=== PATIENT | female | born 1955 | race Caucasian/White ===

== ENCOUNTER 2017-10-27 11:43 | Inpatient (IN) | payer BC ==
[~2017-10-27] VITALS: Ht 162.6 cm; Wt 71.5 kg
[2017-10-27 12:25] LABS: COLLECTION METHOD CLEAN CATCH
[2017-10-27 12:31] LABS: PH 6 (5-8); SQUAMOUS EPITHELIAL None Seen /hpf; URINE APPEARANCE Clear; URINE BACTERIA Rare /hpf; URINE BILIRUBIN Negative (NEGATIVE); URINE BLOOD Negative (NEGATIVE); URINE COLOR Yellow; URINE GLUCOSE Negative (NEGATIVE); URINE KETONE 2+ (NEGATIVE); URINE LEUKOCYTE ESTERASE Negative (NEGATIVE); URINE NITRATE Negative (NEGATIVE); URINE PROTEIN(semi-quant) Negative (NEGATIVE); URINE RBC 0-2 /hpf; URINE UROBILINOGEN Negative (NEGATIVE)
[2017-10-27 12:38] LABS: MEAN CELL VOLUME 100 fl (80.0-100.0); MEAN CORPUSCULAR HGB CONC 32 g/dl (33.0-37.0); PLATELET COUNT 623 K/mm3 (130-400); RED BLOOD COUNT 3.11 M/mm3 (4.10-5.30); REDCELL DISTRIBUTION WIDTH-CV 20.6 % (11.5-14.5)
[2017-10-27 12:41] LABS: HEMOGLOBIN 9.8 g/dl (12.5-16.0); MEAN CORPUSCULAR HEMOGLOBIN 32 pg (27.0-31.0)
[2017-10-27 12:48] LABS: ALBUMIN 3.8 gm/dL (3.5-5.0); BILIRUBIN,TOTAL 0.7 mg/dL (0.0-1.0); CREATININE, serum 0.55 mg/dL (0.52-1.25); POTASSIUM 3.8 mmol/L (3.4-5.0); TOTAL PROTEIN 6.5 gm/dL (6.4-8.2)
[2017-10-27 12:59] LABS: BAND 29 % (0-10); LYMPHOCYTE 3 % (20.0-51.0); METAMYELOCYTE 1 % (0-0); NEUTROPHILS 61 % (42.0-75.2); PLATELET ESTIMATE INCREASED (NORMAL)
[2017-10-27 13:00] LABS: ANISOCYTOSIS 2+
[2017-10-27] MEDS ORDERED: LEVSIN0.125 M1 PO (13:12)
[2017-10-27] MEDS ORDERED: REGLAN 10MG10 MG/TAB PO (13:13)
[2017-10-27] MEDS ORDERED: COMPAZINE 110 MG/TAB PO (13:14)
[2017-10-27] MEDS ORDERED: RESTORIL 1515 MG/CAP PO (13:15)
[2017-10-27] MEDS ORDERED: MELAT3MGTAB (13:16)
[2017-10-27] MEDS ORDERED: ROXICODONE 55 MG/TAB PO (13:16)
[2017-10-27] MEDS ORDERED: MIRALAX510G PO (13:17)
[2017-10-27] MEDS ORDERED: ULTRAM 50MG TAB50 MG PO (13:17)
[2017-10-27 15:52] VITALS: BP 122/77; PULSE 110; TEMP 97.8
[2017-10-27 19:48] VITALS: BP 138/76; PULSE 110; TEMP 99.3
[2017-10-27 23:15] VITALS: BP 133/70; PULSE 108; TEMP 98.9
[2017-10-28] VITALS (8 sets, daily range): BP systolic 110–132; BP diastolic 54–77; PULSE 101–118; TEMP 97.7–99.1
[2017-10-28 07:54] LABS: MEAN CELL VOLUME 101 fl (80.0-100.0); MEAN CORPUSCULAR HGB CONC 31 g/dl (33.0-37.0); PLATELET COUNT 678 K/mm3 (130-400); RED BLOOD COUNT 2.79 M/mm3 (4.10-5.30); REDCELL DISTRIBUTION WIDTH-CV 20.7 % (11.5-14.5)
[2017-10-28 07:58] LABS: HEMATOCRIT 28.3 % (37.0-47.0); HEMOGLOBIN 8.8 g/dl (12.5-16.0); MEAN CORPUSCULAR HEMOGLOBIN 32 pg (27.0-31.0)
[2017-10-28 08:14] LABS: CALCIUM 8.4 mg/dL (8.4-10.2); CREATININE, serum 0.52 mg/dL (0.52-1.25); POTASSIUM 4.1 mmol/L (3.4-5.0)
[2017-10-28 08:25] LABS: BAND 25 % (0-10); LYMPHOCYTE 6 % (20.0-51.0); METAMYELOCYTE 3 % (0-0); NEUTROPHILS 66 % (42.0-75.2); PLATELET ESTIMATE INCREASED (NORMAL)
[2017-10-28 08:26] LABS: ANISOCYTOSIS 1+
[2017-10-29 02:15] VITALS: BP 117/53; PULSE 118; TEMP 99.4
[2017-10-29 06:26] VITALS: BP 116/58; PULSE 117; TEMP 99
[2017-10-29 07:11] LABS: MEAN CELL VOLUME 102 fl (80.0-100.0); MEAN CORPUSCULAR HGB CONC 32 g/dl (33.0-37.0); MEAN PLATELET VOLUME 9.1 fl (7.4-10.4); PLATELET COUNT 699 K/mm3 (130-400); RED BLOOD COUNT 2.44 M/mm3 (4.10-5.30)
[2017-10-29 07:26] LABS: ALBUMIN 2.4 gm/dL (3.5-5.0); BILIRUBIN,TOTAL 0.9 mg/dL (0.0-1.0); CALCIUM 8.1 mg/dL (8.4-10.2); CREATININE, serum 0.57 mg/dL (0.52-1.25); TOTAL PROTEIN 4.8 gm/dL (6.4-8.2)
[2017-10-29 07:31] LABS: HEMATOCRIT 24.9 % (37.0-47.0); HEMOGLOBIN 7.9 g/dl (12.5-16.0); MEAN CORPUSCULAR HEMOGLOBIN 32 pg (27.0-31.0)
[2017-10-29 09:27] VITALS: BP 114/59; PULSE 113; TEMP 97.9
[2017-10-29 13:47] VITALS: BP 120/68; PULSE 109; TEMP 98.7
[2017-10-29 22:42] VITALS: BP 112/61; PULSE 108; TEMP 99
[2017-10-30 06:12] VITALS: BP 105/63; PULSE 104; TEMP 98.6
[2017-10-30 06:54] LABS: BASO % 0.2 % (0.0-2.0); EOS # 0.1 (0.0-0.7); EOS % 0.3 % (0-4.0); GRAN # 18.6 (1.4-6.5); GRAN % 87.3 % (42.2-75.2); LYMPH # 0.9 (1.2-3.4); LYMPH % 4.2 % (20.0-51.0); MEAN CELL VOLUME 101 fl (80.0-100.0); MEAN CORPUSCULAR HGB CONC 31 g/dl (33.0-37.0); MONO # 1.5 (0.1-0.6); MONO % 6.9 % (1.7-9.3); PLATELET COUNT 622 K/mm3 (130-400); RED BLOOD COUNT 2.37 M/mm3 (4.10-5.30); REDCELL DISTRIBUTION WIDTH-CV 19.6 % (11.5-14.5)
[2017-10-30 06:55] LABS: HEMOGLOBIN 7.5 g/dl (12.5-16.0); MEAN CORPUSCULAR HEMOGLOBIN 32 pg (27.0-31.0)
[2017-10-30 07:01] LABS: CREATININE, serum 0.47 mg/dL (0.52-1.25); POTASSIUM 3.8 mmol/L (3.4-5.0)
[2017-10-30 09:24] VITALS: BP 123/75; PULSE 107; TEMP 98.6
[2017-10-30 13:23] VITALS: BP 123/71; PULSE 108; TEMP 98.3
[2017-10-30 16:48] VITALS: BP 105/64; PULSE 109; TEMP 99.7
[2017-10-30 22:29] VITALS: BP 107/69; PULSE 109; TEMP 99.3
[2017-10-31 01:49] VITALS: BP 114/29; PULSE 108; TEMP 99
[2017-10-31 06:27] VITALS: BP 107/66; PULSE 109; TEMP 99.2
[2017-10-31 10:30] VITALS: BP 109/66; PULSE 109; TEMP 96.6
[2017-10-31 13:24] VITALS: BP 120/67; PULSE 109; TEMP 98.5
[2017-10-31 17:29] VITALS: BP 133/76; PULSE 113; TEMP 98.2
[2017-10-31 21:46] VITALS: BP 139/78; PULSE 108; TEMP 98.5
[2017-11-01 01:21] VITALS: BP 141/77; PULSE 106; TEMP 97.8
[2017-11-01 05:25] VITALS: BP 147/85; PULSE 106; TEMP 97.8
[2017-11-01 08:52] LABS: MEAN CELL VOLUME 98 fl (80.0-100.0); MEAN CORPUSCULAR HGB CONC 32 g/dl (33.0-37.0); MEAN PLATELET VOLUME 8.6 fl (7.4-10.4); PLATELET COUNT 614 K/mm3 (130-400); RED BLOOD COUNT 2.59 M/mm3 (4.10-5.30); REDCELL DISTRIBUTION WIDTH-CV 18.4 % (11.5-14.5)
[2017-11-01 08:55] LABS: HEMATOCRIT 25.3 % (37.0-47.0); HEMOGLOBIN 8.1 g/dl (12.5-16.0); MEAN CORPUSCULAR HEMOGLOBIN 31 pg (27.0-31.0)
[2017-11-01 09:01] LABS: CALCIUM 8.3 mg/dL (8.4-10.2); CREATININE, serum 0.41 mg/dL (0.52-1.25); MAGNESIUM 1.7 mg/dL (1.6-2.3)
[2017-11-01 10:46] LABS: BAND 46 % (0-10); LYMPHOCYTE 4 % (20.0-51.0); NEUTROPHILS 46 % (42.0-75.2); PLATELET ESTIMATE INCREASED (NORMAL)
[2017-11-01 10:52] VITALS: BP 142/81; PULSE 99; TEMP 97.5
[2017-11-01 14:52] VITALS: BP 132/76; PULSE 101; TEMP 98.5
[2017-11-01 17:59] VITALS: BP 125/75; PULSE 108; TEMP 98.6
[2017-11-01 22:02] VITALS: BP 131/69; PULSE 107; TEMP 98.2
[2017-11-02 05:13] VITALS: BP 120/66; PULSE 109; TEMP 98.2
[2017-11-02 07:41] LABS: BASO % 0.3 % (0.0-2.0); EOS # 0.2 (0.0-0.7); EOS % 1.1 % (0-4.0); GRAN # 11.1 (1.4-6.5); GRAN % 84.9 % (42.2-75.2); LYMPH # 0.8 (1.2-3.4); LYMPH % 6.3 % (20.0-51.0); MEAN CELL VOLUME 98 fl (80.0-100.0); MEAN CORPUSCULAR HGB CONC 32 g/dl (33.0-37.0); MEAN PLATELET VOLUME 8.8 fl (7.4-10.4); MONO # 0.9 (0.1-0.6); MONO % 6.9 % (1.7-9.3); PLATELET COUNT 580 K/mm3 (130-400); RED BLOOD COUNT 2.39 M/mm3 (4.10-5.30); REDCELL DISTRIBUTION WIDTH-CV 18.3 % (11.5-14.5)
[2017-11-02 07:46] LABS: HEMATOCRIT 23.4 % (37.0-47.0); HEMOGLOBIN 7.5 g/dl (12.5-16.0); MEAN CORPUSCULAR HEMOGLOBIN 31 pg (27.0-31.0)
[2017-11-02 07:53] LABS: CALCIUM 8.2 mg/dL (8.4-10.2); CREATININE, serum 0.47 mg/dL (0.52-1.25); MAGNESIUM 1.9 mg/dL (1.6-2.3); PHOSPHOROUS 3.6 mg/dL (2.5-4.5); POTASSIUM 3.9 mmol/L (3.4-5.0)
[2017-11-02 10:34] VITALS: BP 121/73; PULSE 103; TEMP 98.2
[2017-11-02 13:52] VITALS: BP 116/73; PULSE 101; TEMP 98.6
[2017-11-02 16:20] LABS: FOLATE (FOLIC ACID) 8.7 ng/mL (7.0-31.4)
[2017-11-02 17:42] VITALS: BP 131/75; PULSE 108; TEMP 98.6
[2017-11-02 22:19] VITALS: BP 134/74; PULSE 118; TEMP 99.3
[2017-11-03 06:32] VITALS: BP 114/64; PULSE 103; TEMP 98.9
[2017-11-03 07:27] LABS: BASO # 0.1 (0.0-0.2); BASO % 0.6 % (0.0-2.0); EOS # 0.2 (0.0-0.7); EOS % 1.5 % (0-4.0); GRAN # 8.7 (1.4-6.5); GRAN % 82.1 % (42.2-75.2); LYMPH # 0.8 (1.2-3.4); LYMPH % 7.7 % (20.0-51.0); MEAN CELL VOLUME 99 fl (80.0-100.0); MEAN CORPUSCULAR HGB CONC 32 g/dl (33.0-37.0); MEAN PLATELET VOLUME 8.8 fl (7.4-10.4); MONO # 0.8 (0.1-0.6); MONO % 7.5 % (1.7-9.3); PLATELET COUNT 548 K/mm3 (130-400); RED BLOOD COUNT 2.21 M/mm3 (4.10-5.30); REDCELL DISTRIBUTION WIDTH-CV 18.6 % (11.5-14.5)
[2017-11-03 07:38] LABS: CALCIUM 8.4 mg/dL (8.4-10.2); CREATININE, serum 0.45 mg/dL (0.52-1.25)
[2017-11-03 07:40] LABS: HEMATOCRIT 21.8 % (37.0-47.0); HEMOGLOBIN 6.9 g/dl (12.5-16.0); MEAN CORPUSCULAR HEMOGLOBIN 31 pg (27.0-31.0)
[2017-11-03 10:14] VITALS: BP 122/68; PULSE 105; TEMP 98.4
[2017-11-03 13:45] VITALS: BP 118/71; PULSE 107; TEMP 98.3
[2017-11-03 17:27] VITALS: BP 125/71; PULSE 104; TEMP 99
[2017-11-03 21:45] VITALS: BP 118/70; PULSE 106; TEMP 98.1
[2017-11-03 21:48] VITALS: BP 118/70; PULSE 109; TEMP 98.3
[2017-11-04 05:23] VITALS: BP 121/72; PULSE 116; TEMP 98.6
[2017-11-04 07:33] LABS: MEAN CELL VOLUME 98 fl (80.0-100.0); MEAN CORPUSCULAR HGB CONC 32 g/dl (33.0-37.0); MEAN PLATELET VOLUME 8.7 fl (7.4-10.4); PLATELET COUNT 559 K/mm3 (130-400); RED BLOOD COUNT 2.39 M/mm3 (4.10-5.30); REDCELL DISTRIBUTION WIDTH-CV 18.8 % (11.5-14.5)
[2017-11-04 07:41] LABS: HEMATOCRIT 23.3 % (37.0-47.0); HEMOGLOBIN 7.5 g/dl (12.5-16.0); MEAN CORPUSCULAR HEMOGLOBIN 31 pg (27.0-31.0)
[2017-11-04 07:59] LABS: CALCIUM 8.5 mg/dL (8.4-10.2); CREATININE, serum 0.49 mg/dL (0.52-1.25); POTASSIUM 4.1 mmol/L (3.4-5.0)
[2017-11-04 08:12] LABS: BAND 30 % (0-10); LYMPHOCYTE 3 % (20.0-51.0); NEUTROPHILS 65 % (42.0-75.2); PLATELET ESTIMATE INCREASED (NORMAL)
[2017-11-04 08:13] LABS: ANISOCYTOSIS 1+
[2017-11-04 09:27] VITALS: BP 116/66; PULSE 107; TEMP 98.8
[2017-11-04 13:19] VITALS: BP 123/71; PULSE 110; TEMP 97.6
[2017-11-04 13:20] LABS: COLLECTION METHOD CLEAN CATCH
[2017-11-04 13:36] LABS: MUCOUS Present /lpf; PH 6 (5-8); SQUAMOUS EPITHELIAL None Seen /hpf; URINE APPEARANCE Clear; URINE BACTERIA None Seen /hpf; URINE BILIRUBIN Negative (NEGATIVE); URINE BLOOD Negative (NEGATIVE); URINE COLOR Yellow; URINE GLUCOSE Negative (NEGATIVE); URINE KETONE Trace (NEGATIVE); URINE LEUKOCYTE ESTERASE Negative (NEGATIVE); URINE NITRATE Negative (NEGATIVE); URINE PROTEIN(semi-quant) Negative (NEGATIVE); URINE RBC 0-2 /hpf; URINE UROBILINOGEN Negative (NEGATIVE)
[2017-11-04 18:00] VITALS: BP 120/69; PULSE 118; TEMP 100.4
[2017-11-04 23:02] VITALS: BP 134/71; PULSE 126; TEMP 100
[2017-11-05 01:21] VITALS: TEMP 99
[2017-11-05 05:59] VITALS: BP 115/68; PULSE 128; TEMP 100.3
[2017-11-05 06:20] LABS: BASO % 0.2 % (0.0-2.0); EOS # 0.1 (0.0-0.7); EOS % 0.3 % (0-4.0); GRAN # 13.2 (1.4-6.5); GRAN % 89.4 % (42.2-75.2); LYMPH # 0.4 (1.2-3.4); LYMPH % 2.6 % (20.0-51.0); MEAN CELL VOLUME 97 fl (80.0-100.0); MEAN CORPUSCULAR HGB CONC 32 g/dl (33.0-37.0); MEAN PLATELET VOLUME 8.7 fl (7.4-10.4); PLATELET COUNT 511 K/mm3 (130-400); RED BLOOD COUNT 2.35 M/mm3 (4.10-5.30); REDCELL DISTRIBUTION WIDTH-CV 18.7 % (11.5-14.5)
[2017-11-05 06:31] LABS: CALCIUM 8.3 mg/dL (8.4-10.2); CREATININE, serum 0.51 mg/dL (0.52-1.25); HEMATOCRIT 22.8 % (37.0-47.0); HEMOGLOBIN 7.2 g/dl (12.5-16.0); MAGNESIUM 1.7 mg/dL (1.6-2.3); MEAN CORPUSCULAR HEMOGLOBIN 31 pg (27.0-31.0); POTASSIUM 4.2 mmol/L (3.4-5.0)
[2017-11-05 10:31] VITALS: BP 122/73; PULSE 121; TEMP 98.1
[2017-11-05] MEDS ORDERED: REGLAN 10MG10 MG/TAB PO (12:51)
[2017-11-05] MEDS ORDERED: ZOFRAN ODT4 MG PO (12:51)
[2017-11-05] MEDS ORDERED: ANTACID ULTRA1000 M1 PO (12:52)
[2017-11-05] MEDS ORDERED: MIRALAX PA17 GM/Dose PO (12:52)
[2017-11-05] MEDS ORDERED: ROXANOL 20MG20 MG/ML PO (12:56)
[2017-11-05] MEDS ORDERED: FENTANYL 75MCG TD (12:56)
[2017-11-05] MEDS ORDERED: ATIVAN 0.50.5 MG/TAB PO (12:56)
[2017-11-05 14:14] VITALS: BP 122/73; PULSE 121; TEMP 98.1
== END 2017-11-05 15:34 | disposition hospice, home (50) | DRG 330 ==
LOC: COL.ER 11:43 → MEDICAL 14:40 → SURG 10-28 19:10
PROVIDERS: Emergency Medicine; Internal Medicine; Nurse Practitioner Family; Physician Assistant; Surgery
PROC: 0DTN0ZZ Resection of Sigmoid Colon, Open Approach (ICD-10-PCS; principal; 2017-10-28 16:00)
PROC: 0D1N0Z4 Bypass Sigmoid Colon to Cutaneous, Open Approach (ICD-10-PCS; 2017-10-28 16:00)
DX: C78.5 Secondary malignant neoplasm of large intestine and rectum (principal); C78.6 Secondary malignant neoplasm of retroperitoneum and peritoneum; C79.82 Secondary malignant neoplasm of genital organs; K56.699 Other intestinal obstruction unspecified as to partial versus complete obstruction; E87.1 Hypo-osmolality and hyponatremia; Z51.5 Encounter for palliative care; Z85.43 Personal history of malignant neoplasm of ovary; D63.8 Anemia in other chronic diseases classified elsewhere; R00.0 Tachycardia, unspecified
CPT/HCPCS: 99223-AI; 99232-AI; 99233-AI; A4314; A4315; A9284; G0378; J0694; J1100; J1170; J1650; J2060; J2250; J2300; J2405; J2550; J2704; J2765; J2795; J3010; J3475; J7030; J7042; J7050; J7120; Q9967